=== PATIENT | female | born 1950 | race American Indian/Alaskan Native ===

== ENCOUNTER 2016-11-24 10:33 | Inpatient (IN) | payer MEDICARE, OTHER ==
[2016-11-24 11:23] LABS: Blood Urea Nitrogen 28 mg/dL (7-17)
[2016-11-24] MEDS ORDERED: NACL ONE (11:49)
--- NOTE | 2016-11-24 13:54 | Cat Scan Report ---
CT scan of chest with IV contrast: History: Persistent cough/right hilar mass. Findings: Filling defect in right upper lobe pulmonary artery origin suggestive of pulmonary embolism. Arteriosclerotic thoracic aorta without aneurysm. Dilated pulmonary arteries suggestive of pulmonary arterial hypertension. No mediastinal mass or adenopathy. Single pretracheal lymph node measures 1.2 cm. No pleural or pericardial effusion. Minimal scarring right and left apex and left lower lobe. No consolidation or mass. Impression: Pulmonary embolus right upper lobe branch. Pulmonary arterial hypertension. No acute changes. Dr. Susan Engle was informed of the findings at 1:48 PM on 11/24/16. RheaPmildred.
[2016-11-24] MEDS ORDERED: TYLENOL PO PRN (15:38)
[2016-11-24] MEDS ORDERED: MILK OF MAGNESIA PO PRN (15:38)
[2016-11-24] MEDS ORDERED: DULCOLAX PR PRN (15:38)
[2016-11-24] MEDS ORDERED: ZOFRAN IV PRN (15:38)
[2016-11-24] MEDS ORDERED: HEPARIN 10,000 UNITS/10 ML IV ONE (15:44)
[2016-11-24 17:09] LABS: Eosinophils % (Auto) 5.1 % (0.0-4.3); Hematocrit 38.5 % (30.3-42.9); Hemoglobin 12.5 gm/dl (10.1-14.3); Mean Corpuscular HGB Conc 33 % (30-34); Mean Corpuscular Hemoglobin 29 pg (28-32); Mean Corpuscular Volume 89 fl (79-97); Platelet Count 251 K/mm3 (140-440); Red Blood Count 4.34 M/mm3 (3.65-5.03); Red Cell Distribution Width 13.4 % (13.2-15.2); White Blood Count 5.9 K/mm3 (4.5-11.0)
[2016-11-24 17:18] LABS: BUN/Creatinine Ratio 22.5; Calcium 9.4 mg/dL (8.4-10.2); Chloride 100.7 mmol/L (98-107); INR 1.03 (0.87-1.13); Partial Thromboplastin Time 27.6 Sec. (24.2-36.6); Potassium 5.1 mmol/L (3.6-5.0)
--- NOTE | 2016-11-24 18:29 | History and Physical Report ---
History of Present Illness Date of admission: 11/24/16 15:38 History of present illness: This is apatient with a history of copd, chronic respiratory failure on o2 with hx of right DVT in the past who has had llle swelling. Seen by PCP and treated for gout. She had some improvement but began having shortness of breath. CTA done today showed evidence of acute pulmonary emboli. . She reports no worsening shortness of breath or chest pain. Past History Past Medical History: COPD, diabetes, DVT, hypertension Past Surgical History: hysterectomy (breast surgery), Other Social history: , lives with family, smoking (has discontinued x 2 yrs) Family history: CAD, diabetes, other (lung cancer) Medications and Allergies Allergies Allergy/AdvReac Type Severity Reaction Status Date / Time lisinopril Allergy COUGH Unverified 11/24/16 10:38 codeine AdvReac HALLUCINATI Unverified 11/24/16 10:38 ONS Fish Containing Products AdvReac Anaphylaxis Unverified 11/24/16 10:38 Penicillins AdvReac Rash Unverified 11/24/16 10:38 Active Meds: Active Medications Acetaminophen (Tylenol) 650 mg PO Q4H PRN PRN Reason: Pain MILD(1-3)/Fever >100.5/POPE Bisacodyl (Dulcolax) 10 mg [place] QDAY PRN PRN Reason: Constipation unrelieved by MOM Carvedilol (Coreg) 6.25 mg PO BID JOY Docusate Sodium (Colace) 100 mg PO BID JOY Famotidine (Pepcid) 10 mg PO BID JOY Heparin Sodium/Sodium Chloride (Heparin/ 0.45% Nacl-25,000 Unit/500 Ml) 25,000 unit in 500 mls @ 27 mls/hr IV TITR JOY; 1,350 UNITS/HR PRN Reason: Protocol Magnesium Hydroxide (Milk Of Magnesia) 30 ml PO Q4H PRN PRN Reason: Constipation Ondansetron HCl (Zofran) 4 mg IV Q8H PRN PRN Reason: N/V unrelieved by Reglan Review of Systems Constitutional: weight gain, weakness, chronic pain Respiratory: shortness of breath, home oxygen Musculoskeletal: morning stiffness, muscle cramps Hematologic/Lymphatic: easy bruising Allergic/Immunologic: allergic rhinitis Physical Examination Vital signs: Vital Signs Temp Pulse Resp BP Pulse Ox 98.6 F 93 H 20 106/45 97 11/24/16 17:00 11/24/16 17:00 11/24/16 17:00 11/24/16 17:00 11/24/16 17:00 General appearance: no acute distress, alert Eyes: non-icteric ENT: oropharynx moist Neck: supple Effort: normal Ascultation: Bilateral: clear Cardiovascular: regular rate and rhythm Gastrointestinal: normoactive bowel sounds, soft, non-tender, non-distended Integumentary: normal Extremities: no cyanosis, edema Musculoskeletal: no deformities Gait: normal gait normal mental status, non-focal exam, CN II-XII normal mood appropriate, affect normal Results - Laboratory Findings CBC and BMP: 11/24/16 16:34 11/24/16 16:34 PT/INR, D-dimer PT 13.4 Sec. (12.2-14.9) 11/24/16 16:34 INR 1.03 (0.87-1.13) 11/24/16 16:34 Abnormal lab findings: Abnormal Labs 11/24/16 11/24/16 11/24/16 10:56 16:34 16:34 Lymph % (Auto) 43.6 H Hardy % (Auto) 11.7 H Eos % (Auto) 5.1 H Seg Neutrophils % 38.6 L Potassium 5.1 H BUN 28 H 27 H Glucose 194 H - Diagnostic Findings CT scan - chest: report reviewed, image reviewed Assessment and Plan - Patient Problems (1) Chronic respiratory failure Current Visit: Yes Status: Chronic Qualifiers: Respiratory failure complication: hypoxia Qualified Code(s): J96.11 - Chronic respiratory failure with hypoxia (2) Hypoxia Current Visit: Yes Status: Chronic (3) Pulmonary embolism Current Visit: Yes Status: Acute Qualifiers: Pulmonary embolism type: P Chronicity: acute Acute cor pulmonale presence : without acute cor pulmonale (4) DVT (deep venous thrombosis) Current Visit: Yes Status: Chronic Qualifiers: DVT location: lower extremity Affected thrombotic vein of extremity: popliteal Chronicity: chronic Laterality: right Qualified Code(s): I82.531 - 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, managed as type 2 Current Visit: Yes Status: Chronic (6) Hypertension Current Visit: Yes Status: Chronic Qualifiers: Hypertension type: H (7) COPD (chronic obstructive pulmonary disease) Current Visit: Yes Status: Acute Qualifiers: COPD type: emphysema Chronic bronchitis type: C Emphysema type: centrilobular Qualified Code(s): J43.2 - Centrilobular emphysema (8) COPD (chronic obstructive pulmonary disease) with emphysema Current Visit: Yes Status: Acute Qualifiers: Emphysema type: E (9) Morbid obesity due to excess calories Current Visit: Yes Status: Chronic (10) Edema Current Visit: Yes Status: Acute Qualifiers: Edema type: E Malnutrition edema type: M Trimester: T
[2016-11-24] MEDS: COLACE PO SCH (22:19)
[2016-11-24] MEDS: NEURONTIN PO SCH (22:19)
[2016-11-24] MEDS: ZOCOR PO SCH (22:20)
[2016-11-24] MEDS: PEPCID PO SCH (22:20)
[2016-11-24] MEDS: HEPARIN/ 0.45% NACL-25,000 UNIT/500 ML 25,000 UNIT/500 ML BAG IV SCH (22:20)
[2016-11-24] MEDS: VOLTAREN DR PO SCH (22:20)
[2016-11-24] MEDS: COREG PO SCH (22:23)
[2016-11-25] MEDS: NEURONTIN PO SCH ×3 (05:51→21:36)
[2016-11-25] MEDS: HEPARIN/ 0.45% NACL-25,000 UNIT/500 ML 25,000 UNIT/500 ML BAG IV SCH ×2 (05:52→17:57)
[2016-11-25] MEDS: NOVOLOG SUB-Q SCH ×4 (09:00→21:38)
[2016-11-25] MEDS: PEPCID PO SCH ×2 (10:12→21:38)
[2016-11-25] MEDS: COLACE PO SCH ×2 (10:13→21:51)
[2016-11-25] MEDS: DELTASONE PO SCH (10:13)
[2016-11-25] MEDS: VOLTAREN DR PO SCH ×2 (10:14→21:36)
[2016-11-25] MEDS: COREG PO SCH ×2 (10:27→21:40)
--- NOTE | 2016-11-25 14:48 | Progress Note ---
Assessment and Plan Impression: Pulmonary embolism Rule out DVT Obstructive sleep apnea syndrome Hypertension Diabetes mellitus. Recommendation: Continue with heparin switch to Xarelto if covered on her insurance plan. NT need usual medications Monitor blood sugars. Subjective Date of service: 11/25/16 Interval history: Patient feeling fairly well. No shortness of breath. Has pulmonary embolism on CTA. Echo and venous Doppler studies are pending. Objective Vital Signs - 12hr 11/25/16 11/25/16 11/25/16 08:00 09:36 10:27 Temperature 97.5 F L Pulse Rate 68 76 Respiratory 20 Rate Blood Pressure 112/49 Blood Pressure 103/47 [Right] O2 Sat by Pulse 98 96 Oximetry Constitutional: no acute distress, alert Eyes: non-icteric ENT: oropharynx moist, other (crowded oropharynx) Neck: supple Effort: normal Ascultation: Bilateral: clear Cardiovascular: regular rate and rhythm Gastrointestinal: normoactive bowel sounds, soft, non-tender, non-distended, other (obese) Integumentary: normal Extremities: no cyanosis, edema Neurologic: normal mental status, non-focal exam, CN II-XII normal Psychiatric: mood appropriate, affect normal CBC and BMP: 11/24/16 16:34 11/24/16 16:34 ABG, PT/INR, D-dimer: PT/INR, D-dimer PT 13.4 Sec. (12.2-14.9) 11/24/16 16:34 INR 1.03 (0.87-1.13) 11/24/16 16:34 Abnormal lab findings: Abnormal Labs 11/24/16 11/24/16 11/24/16 10:56 16:34 16:34 Lymph % (Auto) 43.6 H Tucker % (Auto) 11.7 H Eos % (Auto) 5.1 H Seg Neutrophils % 38.6 L Heparin Anti-Xa Level Potassium 5.1 H BUN 28 H 27 H Glucose 194 H POC Glucose 11/24/16 11/25/16 11/25/16 21:37 08:06 10:28 Lymph % (Auto) Tucker % (Auto) Eos % (Auto) Seg Neutrophils % Heparin Anti-Xa Level 0.87 H Potassium BUN Glucose POC Glucose 196 H 165 H 11/25/16 11:43 Lymph % (Auto) Tucker % (Auto) Eos % (Auto) Seg Neutrophils % Heparin Anti-Xa Level Potassium BUN Glucose POC Glucose 182 H
[2016-11-25] MEDS: METFORMIN PO SCH (17:37)
[2016-11-25] MEDS: SAXAGLIPTIN PO SCH (17:37)
[2016-11-25] MEDS: ZOCOR PO SCH (21:37)
[2016-11-25] MEDS: ULTRAM PO PRN (21:37)
[2016-11-26 03:31] LABS: Hematocrit 36.8 % (30.3-42.9); Hemoglobin 12.3 gm/dl (10.1-14.3)
[2016-11-26] MEDS: HEPARIN/ 0.45% NACL-25,000 UNIT/500 ML 25,000 UNIT/500 ML BAG IV SCH (04:03)
[2016-11-26] MEDS: NEURONTIN PO SCH ×3 (05:56→22:11)
[2016-11-26] MEDS: NOVOLOG SUB-Q SCH ×4 (07:48→22:13)
[2016-11-26] MEDS: PEPCID PO SCH ×2 (09:22→22:11)
[2016-11-26] MEDS: DELTASONE PO SCH ×2 (09:23→16:00)
[2016-11-26] MEDS: VOLTAREN DR PO SCH (09:24)
[2016-11-26] MEDS: COREG PO SCH ×2 (09:29→22:11)
[2016-11-26] MEDS: COLACE PO SCH ×2 (09:30→22:13)
--- NOTE | 2016-11-26 14:08 | Progress Note ---
Assessment and Plan Impression: Pulmonary embolism Rule out DVT Obstructive sleep apnea syndrome Hypertension Diabetes mellitus. Recommendation: Continue with heparin switch to Xarelto if covered on her insurance plan. NT need usual medications Monitor blood sugars. Start diabetic diet as blood sugars are running high. Reduce prednisone Subjective Date of service: 11/26/16 Interval history: Patient feeling fairly well. No shortness of breath. Has pulmonary embolism on CTA. Echo and venous Doppler studies are pending. Objective Vital Signs - 12hr 11/26/16 11/26/16 11/26/16 07:16 09:13 09:29 Temperature Pulse Rate 90 Respiratory Rate Respiratory Rate [Right Shoulder] Blood Pressure 107/63 Blood Pressure [Right] O2 Sat by Pulse 95 99 Oximetry 11/26/16 11/26/16 10:00 14:03 Temperature 98.6 F 98.6 F Pulse Rate 78 79 Respiratory 20 20 Rate Respiratory 20 Rate [Right Shoulder] Blood Pressure Blood Pressure 109/52 105/41 [Right] O2 Sat by Pulse 100 98 Oximetry Constitutional: no acute distress, alert Eyes: non-icteric ENT: oropharynx moist, other (crowded oropharynx) Neck: supple Effort: normal Ascultation: Bilateral: clear Cardiovascular: regular rate and rhythm Gastrointestinal: normoactive bowel sounds, soft, non-tender, non-distended, other (obese) Integumentary: normal Extremities: no cyanosis, edema Neurologic: normal mental status, non-focal exam, CN II-XII normal Psychiatric: mood appropriate, affect normal CBC and BMP: 11/26/16 03:05 11/24/16 16:34 ABG, PT/INR, D-dimer: PT/INR, D-dimer PT 13.4 Sec. (12.2-14.9) 11/24/16 16:34 INR 1.03 (0.87-1.13) 11/24/16 16:34 Abnormal lab findings: Abnormal Labs 11/24/16 11/24/16 11/24/16 10:56 16:34 16:34 Lymph % (Auto) 43.6 H Throckmorton % (Auto) 11.7 H Eos % (Auto) 5.1 H Seg Neutrophils % 38.6 L Heparin Anti-Xa Level Potassium 5.1 H BUN 28 H 27 H Glucose 194 H POC Glucose 11/24/16 11/25/16 11/25/16 21:37 08:06 10:28 Lymph % (Auto) Throckmorton % (Auto) Eos % (Auto) Seg Neutrophils % Heparin Anti-Xa Level 0.87 H Potassium BUN Glucose POC Glucose 196 H 165 H 11/25/16 11/25/16 11/25/16 11:43 16:19 18:07 Lymph % (Auto) Throckmorton % (Auto) Eos % (Auto) Seg Neutrophils % Heparin Anti-Xa Level 1.04 H Potassium BUN Glucose POC Glucose 182 H 246 H 11/25/16 11/26/16 11/26/16 21:05 07:23 11:23 Lymph % (Auto) Throckmorton % (Auto) Eos % (Auto) Seg Neutrophils % Heparin Anti-Xa Level Potassium BUN Glucose POC Glucose 224 H 124 H 221 H
[2016-11-26] MEDS: XARELTO PO SCH (17:05)
[2016-11-26] MEDS: METFORMIN PO SCH (17:06)
[2016-11-26] MEDS: SAXAGLIPTIN PO SCH (17:06)
[2016-11-26] MEDS: ZOCOR PO SCH (22:11)
[2016-11-26] MEDS: ULTRAM PO PRN (22:12)
[2016-11-27] MEDS: NEURONTIN PO SCH ×2 (06:12→13:54)
--- NOTE | 2016-11-27 07:28 | Vascular Lab Report ---
LOWER EXTREMITY VENOUS DUPLEX: REASON FOR EXAM: History of bilateral deep venous thrombosis and pulmonary embolism./Leg pain. COMMENTS ON THE RIGHT: A small amount of nonocclusive thrombus is noted in the popliteal vein. The remaining veins visualized are freely compressible without evidence of internal echogenicity. Spontaneous and phasic flow is present proximally. COMMENTS ON THE LEFT: All veins visualized are freely compressible without evidence of internal echogenicity. Flow is spontaneous and phasic throughout. IMPRESSION: Chronic venous thrombosis in the right popliteal vein
[2016-11-27] MEDS: NOVOLOG SUB-Q SCH ×2 (08:00→12:00)
[2016-11-27] MEDS: XARELTO PO SCH (08:58)
[2016-11-27] MEDS: PEPCID PO SCH (09:18)
[2016-11-27] MEDS: DELTASONE PO SCH (09:19)
[2016-11-27] MEDS: COREG PO SCH (09:27)
[2016-11-27] MEDS: COLACE PO SCH (09:27)
[2016-11-27 09:29] VITALS: BP 110/59
--- NOTE | 2016-11-27 13:35 | Discharge Summary ---
Providers - Providers Date of Admission: 11/24/16 15:38 Date of discharge: 11/27/16 Attending physician: SHOAIB TIDWELL 11/24/16 Consult to Case Management [CONS] Routine Services Needed at Discharge: Other Notified:: DAVID Phone number called:: [phone] Primary care physician: DERRELL CORDOBA Hospitalization Reason for admission: Pulmonary Embolism Condition: Good Hospital course: Diagnosed with PE, started on Xarelto therapy and tolerated well. Discharged on Xarelto. Follow up with Oniel. Does see PM for heme as she has seen him in the past, but he does not come to the hospital anymore. Will need hypercoag work up done at some point. Disposition: DC-01 TO HOME OR SELFCARE Time spent for discharge: 33 minutes - Discharge Diagnoses (1) Pulmonary embolism Status: Acute Qualifiers: Pulmonary embolism type: P Chronicity: acute Acute cor pulmonale presence : without acute cor pulmonale Core Measure Documentation - Palliative Care Palliative Care/ Comfort Measures: Not Applicable - Core Measures Any of the following diagnoses?: DVT/PE - VTE Discharge Requirements Deep Vein Thrombosis/Pulmonary Embolism Present on Admission: Yes Has pt received <5 days of overlap therapy or INR<2.0: No (Discharging on Xarelto) Anticoagulant overlap therapy prescribed at discharge: No Contraindication No Overlap Therapy order at DC: Not Indicated Exam - Constitutional Vitals: Temp Pulse Resp BP Pulse Ox 98.6 F 84 20 110/59 96 11/27/16 06:36 11/27/16 10:00 11/27/16 06:36 11/27/16 09:27 11/27/16 10:00 General appearance: Present: no acute distress - EENT Eyes: Present: PERRL, EOM intact ENT: hearing intact, clear oral mucosa, dentition normal - Neck Neck: Present: supple, normal ROM - Respiratory Respiratory effort: normal Respiratory: bilateral: CTA - Cardiovascular Rhythm: regular Heart Sounds: Present: S1 & S2 - Extremities Extremities: no ischemia Peripheral Pulses: within normal limits - Abdominal General gastrointestinal: Present: soft, non-tender, normal bowel sounds - Rectal Rectal Exam: deferred - Musculoskeletal Musculoskeletal: strength equal bilaterally - Psychiatric Psychiatric: appropriate mood/affect - Neurologic Neurologic: CNII-XII intact Plan Activity: other (limit contact sports) Weight Bearing Status: Full Weight Bearing Diet: regular Follow up with: DERRELL CORDOBA MD [Primary Care Provider] - 7 Days Prescriptions: Rivaroxaban [Xarelto] 15 mg PO BIDDIAB 21 Days
== END 2016-11-27 15:06 | disposition home or self-care (01) | DRG 176 ==
LOC: CT 10:33 → CC2 15:38
PROVIDERS: ADMIT Specialist; ATTEND Specialist
DX: I26.99 Other pulmonary embolism without acute cor pulmonale (principal); J96.11 Chronic respiratory failure with hypoxia; I82.531 Chronic embolism and thrombosis of right popliteal vein; Z68.41 Body mass index [BMI] 40.0-44.9, adult; G47.33 Obstructive sleep apnea (adult) (pediatric); E11.9 Type 2 diabetes mellitus without complications; I10 Essential (primary) hypertension; E66.01 Morbid (severe) obesity due to excess calories; Z82.49 Family history of ischemic heart disease and other diseases of the circulatory system; Z83.3 Family history of diabetes mellitus; Z80.1 Family history of malignant neoplasm of trachea, bronchus and lung; Z87.891 Personal history of nicotine dependence; Z88.0 Allergy status to penicillin; Z88.5 Allergy status to narcotic agent; Z88.6 Allergy status to analgesic agent; Z91.013 Allergy to seafood; J44.9 Chronic obstructive pulmonary disease, unspecified
CPT/HCPCS: 36415; 71260; 80048; 82565; 82962; 84520; 85014; 85018; 85025; 85049; 85520; 85610; 85730; 93306; 93970; 94760; J1644; J7512; Q9967

== ENCOUNTER 2017-05-04 08:46 | Outpatient (CLI) | payer MEDICARE, OTHER ==
[2017-05-04 09:33] LABS: Blood Urea Nitrogen 16 mg/dL (7-17)
--- NOTE | 2017-05-04 11:01 | Cat Scan Report ---
CTA CHEST: HISTORY: Pulmonary embolism. COMPARISON: none. TECHNIQUE: Helical CT in 1.25mm intervals following IV contrast. Pulmonary embolus protocol. Sagittal and coronal reformatted images. Rotational MIP images. FINDINGS: Contrast bolus is satisfactory. No pulmonary embolus is identified. Thyroid gland: Normal. Tracheobronchial tree: Normal. Esophagus: Normal. Heart: Borderline to mild cardiomegaly. Pericardium: Normal. Mediastinum: There are moderate atherosclerotic calcifications in the thoracic aorta. No focal aneurysm or dissection. Lung Sotomayor: Normal. Pleural Spaces: Normal. Musculoskeletal: Mild thoracic spondylosis. IMPRESSION: No evidence for pulmonary embolus. Borderline heart size. Moderate atherosclerotic calcifications in the thoracic aorta.
== END 2017-05-04 08:47 | disposition home or self-care (01) ==
LOC: CT 08:46
PROVIDERS: ATTEND Specialist
DX: I26.99 Other pulmonary embolism without acute cor pulmonale (principal); I70.0 Atherosclerosis of aorta; M47.894 Other spondylosis, thoracic region
CPT/HCPCS: 36415; 71275; 82565; 84520; Q9967

== ENCOUNTER 2017-06-12 08:16 | Day surgery (SDC) | payer MEDICARE, OTHER ==
[~2017-06-12 08:16] MED LIST: WATER FOR IRRIG STERILE IR ONE; WATER FOR IRRIG STERILE ONE
[2017-06-12] MEDS ORDERED: DIPRIVAN 10 MG/ML IV ONE (09:43)
--- NOTE | 2017-06-12 09:56 | Anesthesia Day of Surgery ---
Anesthesia Day of Surgery - Day of Surgery Patient Examined: Yes Patient H&P Reviewed: Yes Patient is NPO: Yes Beta Blockers: No
--- NOTE | 2017-06-12 09:58 | Anesthesia Consultation ---
Anesthesia Consult and Med Hx - Airway Anesthetic Teeth Evaluation: Good ROM Head & Neck: Adequate Mental/Hyoid Distance: Adequate Mallampati Class: Class IV Intubation Access Assessment: Possibly Difficult - Pulmonary Exam CTA: Yes - Cardiac Exam Cardiac Exam: No Murmur - Pre-Operative Health Status ASA Pre-Surgery Classification: ASA3 Proposed Anesthetic Plan: MAC - Pulmonary Hx Smoking: No Hx Asthma: No Hx Respiratory Symptoms: No COPD: Yes (HOME 02 USE) Home Oxygen Therapy: No Hx Pneumonia: No Hx Sleep Apnea: No - Cardiovascular System Hx Hypertension: Yes Hx Coronary Artery Disease: No Hx Heart Attack/AMI: No Hx Angina: No Hx Percutaneous Transluminal Coronary Angioplasty (PTCA): No Hx Cardia Arrhythmia: No Hx Pacemaker: No Hx Internal Defibrillator: No Hx Valvular Heart Disease: No Hx Heart Murmur: No Hx Peripheral Vascular Disease: No - Central Nervous System Hx Neuromuscular Disorder: No Hx Seizures: No CVA: No Hx Back Pain: No Hx Psychiatric Problems: No - Gastrointestinal Hx Ulcer: No Hx Gastroesophageal Reflux Disease: No - Endocrine Hx Renal Disease: No Hx End Stage Renal Disease: No Hx Cirrhosis: No Hx Liver Disease: No Hx Insulin Dependent Diabetes: Yes Hx Non-Insulin Dependent Diabetes: No Hx Thyroid Disease: No - Hematic Hx Anemia: No Hx Sickle Cell Disease: No - Other Systems Hx Alcohol Use: No Hx Substance Use: No Hx Cancer: No Hx Obesity: Yes
[2017-06-12] MEDS ORDERED: VERSED ONE (09:59)
[2017-06-12] MEDS ORDERED: ZOFRAN ONE (10:00)
[2017-06-12] MEDS ORDERED: XYLOCAINE MPF 2% ONE (10:00)
[2017-06-12] MEDS ORDERED: NEO SYNEPHRINE/NS Syringe(OR USE) IV ONE (10:00)
[2017-06-12] MEDS ORDERED: NACL 0.9% 1000 ML 1,000 ML IV SCH (10:00)
--- NOTE | 2017-06-12 10:36 | Short Stay Summary ---
Short Stay Documentation Date of service: 06/12/17 Narrative H&P: The patient presents for screening colonoscopy. Last study about 10 years ago. - History Past Medical History: COPD, diabetes, hypertension, hyperlipidemia, other ( obesity, glaucoma) Past Surgical History: hysterectomy, Other (breast surgery) Social history: smoking (former smoker, quit 5 years ago. ), no alcohol abuse, no prescription drug abuse - Allergies and Medications Current Medications: Allergies Fjqdbvo-Rcg-Yho Reductase Inhibitor Allergy (Mild, Verified 06/12/17 07:30) Unknown lisinopril Allergy (Verified 06/12/17 07:30) COUGH codeine Adverse Reaction (Verified 06/12/17 07:30) HALLUCINATIONS Fish Containing Products Adverse Reaction (Verified 06/12/17 07:30) Anaphylaxis Penicillins Adverse Reaction (Verified 06/12/17 07:30) Rash Sulfa (Sulfonamide Antibiotics) Adverse Reaction (Verified 06/12/17 07:30) Hives Home Medications Medication Instructions Recorded Confirmed Last Taken Type Radha-D 12 Hour Tablet 1 tab PO PRN PRN 11/25/16 06/12/17 06/11/17 History Pravastatin 1 tab PO QDAY 11/25/16 06/12/17 06/11/17 09:00 History RX: Carvedilol Phosphate [Coreg CR] 1 tab PO QDAY 11/25/16 11/25/16 06/11/17 09: 00 History RX: Diclofenac Sodium 75 mg PO BID 11/25/16 11/25/16 06/11/17 17:00 History RX: Gabapentin 3 cap PO BID 11/25/16 11/25/16 06/11/17 17:00 History RX: Mirabegron [Myrbetriq] 1 tab PO QDAY 11/25/16 06/12/17 06/11/17 09:00 History RX: Prednisone 1 tab PO QDAY 11/25/16 06/12/17 06/11/17 09:00 History RX: Tizanidine HCl [tiZANidine] 1 tab PO Q8HR 11/25/16 06/11/17 Unknown History RX: Tramadol HCl [traMADol] 1 tab PO Q8H PRN 11/25/16 06/11/17 Unknown History Kombiglize Xr 2.5/1000mg Tab 1 tab PO QPM 11/27/16 06/12/1706/11/18 17:00 Rx RX: Gabapentin [Neurontin] 100 mg PO Q8HR capsule 11/27/16 Unknown Rx RX: Rivaroxaban [Xarelto] 15 mg PO BIDDIAB 21 Days tablet 11/27/16 06/08/17 09 :00 Rx RX: Simvastatin [Zocor TAB] 10 mg PO QHS tablet 11/27/16 06/12/17 06/11/17 21: 00 Rx RX: predniSONE [Deltasone] 5 mg PO QDAY tablet 11/27/16 06/12/17 06/11/17 09: 00 Rx Amlodipine Besylate/Valsartan 10 - 32 tab PO DAILY 06/11/17 06/12/17 06/11/17 09 :00 History [Amlodipine-Valsartan 10-320 mg] Colchicine 1 tab PO DAILY 06/11/17 06/12/17 06/11/17 09:00 History RX: ALBUTEROL Inhaler [ProAir HFA 2 puff PO Q6HR PRN 06/11/17 06/11/17 Unknown History Inhaler] RX: Carvedilol [Coreg] 2 mg PO BID 06/11/17 06/12/17 06/09/17 19:00 History RX: Oseltamivir [Tamiflu] 06/11/17 Unknown History Active Medications Sodium Chloride (Nacl 0.9% 1000 Ml) 1,000 mls @ 50 mls/hr IV DIRECT JOY - Physical exam General appearance: no acute distress, well-nourished, obese Integumentary: no rash, no growths, no abnormal pigmentation HEENT: Atraumatic, PERRLA, EOMI, Mucous membr. moist/pink Lungs: Clear to auscultation Breasts: deferred Heart: Regular rate, Normal S1, Normal S2, No murmurs, no Gallops Gastrointestinal: normoactive bowel sounds, no tenderness, no distended, no masses, no guarding, no organomegaly Female Genitourinary: deferred Rectal Exam: normal exam-external/orifice, normal rectal tone, no mass Extremities: no ischemia, pulses intact, pulses symmetrical, No edema, normal temperature, normal color, Full ROM Neurological: Normal gait, Normal speech, Strength at 5/5 X4 ext, Normal tone, Sensation intact, Cranial nerves 3-12 NL - Brief post op/procedure progress note Date of procedure: 06/12/17 Procedure: see dictated report. Estimated blood loss: none Pathology: list (diminutive descending colon polyp) Specimen disposition: to lab Condition: stable - Disposition Condition at discharge: Good Disposition: DC-01 TO HOME OR SELFCARE - Discharge Diagnoses (1) Colon cancer screening Status: Acute Short Stay Discharge Plan Activity: other (no driving for 24 hours, restart rivarixaban tomorrow) Weight Bearing Status: Full Weight Bearing Diet: diabetic Follow up with: DERRELL CORDOBA MD [Primary Care Provider] - 7 Days
--- NOTE | 2017-06-12 10:40 | Operative Report ---
Operative Report Operative Report: Date of procedure: 06/12/2017 Preprocedure diagnosis: Colon cancer screening. Post procedure diagnosis: Diminutive descending colon polyp. Mild left colon diverticulosis. Procedure: Colonoscopy to the cecum with cold biopsy polypectomy Endoscopist: Dr. Grimes Anesthesia: Monitored anesthesia care per anesthesia department Estimated blood loss: 0 Medications: Monitored anesthesia care. See separate report by anesthesia for details. After careful discussion of the nature and purpose of the procedure as well as details of the technique risks benefits and alternatives the patient gave consent. Please see recent history and physical from the office. The patient was placed in the left lateral decubitus position and medicated per anesthesia. A rectal exam was performed sphincter tone was normal there were no masses palpable. The Nonpareiln 570 scope was passed transanally and advanced under continuous direct vision without difficulty to the cecum. The colon was well prepared. The cecum was normal. The ascending colon was normal and on forward and retroflexed views. The transverse colon was normal. The descending colon revealed a few diverticula and a sessile diminutive polyp. The polyp was removed completely with the cold biopsy forceps. The sigmoid colon revealed scattered diverticula but was otherwise normal. The rectum was normal on forward and retroflexed views. The procedure was well-tolerated overall and the patient was observed in recovery. Conclusions: Diminutive descending colon polyp, mild descending and sigmoid colon diverticulosis. Plan: Await pathology report. Follow-up colonoscopy in 5-10 years depending upon the pathology. Signed electronically: Dick Grimes M.D.
--- NOTE | 2017-06-12 11:35 | Post Anesthesia Evaluation ---
- Post Anesthesia Evaluation Patient Participated: Yes Airway Patent: Yes Stable Respiratory Function: Yes Nausea/Vomiting: No Temp > 96.8F: Yes Pain Manageable: Yes Adequeate Hydration: Yes Anesthesia Complications: No
[2017-06-12 11:36] VITALS: BP 113/52
== END 2017-06-12 08:17 | disposition home or self-care (01) ==
LOC: GIO 08:16
PROVIDERS: ATTEND Internal Medicine Gastroenterology
DX: Z12.11 Encounter for screening for malignant neoplasm of colon (principal); K57.30 Diverticulosis of large intestine without perforation or abscess without bleeding; J44.9 Chronic obstructive pulmonary disease, unspecified; I10 Essential (primary) hypertension; E78.5 Hyperlipidemia, unspecified; E66.9 Obesity, unspecified; E11.39 Type 2 diabetes mellitus with other diabetic ophthalmic complication; H40.9 Unspecified glaucoma; Z88.5 Allergy status to narcotic agent; Z88.0 Allergy status to penicillin; Z88.8 Allergy status to other drugs, medicaments and biological substances; Z88.2 Allergy status to sulfonamides; Z90.710 Acquired absence of both cervix and uterus; Z91.013 Allergy to seafood; Z99.81 Dependence on supplemental oxygen
CPT/HCPCS: 45380; 82962; 88305; J2250; J2370; J2405; J2704; J7030

== ENCOUNTER 2020-10-15 13:22 | Outpatient (CLI) | payer MEDICARE, OTHER ==
--- NOTE | 2020-10-15 16:38 | Vascular Lab Report ---
DUPLEX DOPPLER LOWER EXTREMITY VEINS, BILATERAL INDICATION / CLINICAL INFORMATION: CHECKING FOR BLOOD CLOT. TECHNIQUE: Duplex doppler imaging was performed through the veins of both lower extremities using lv ous compression and other maneuvers. COMPARISON: Bilateral lower extremity venous Doppler 11/25/2016. FINDINGS: RIGHT COMMON FEMORAL VEIN: Negative. RIGHT FEMORAL VEIN: Negative. RIGHT POPLITEAL VEIN: Chronic nonocclusive thrombus. RIGHT CALF VEINS: Negative. LEFT COMMON FEMORAL VEIN: Negative. LEFT FEMORAL VEIN: Negative. LEFT POPLITEAL VEIN: Negative. LEFT CALF VEINS: Negative. ADDITIONAL FINDINGS: None. IMPRESSION: 1. No sonographic evidence for acute DVT in either lower extremity. Chronic nonocclusive thrombus is present within the right popliteal vein, similar to prior exam. Scribed by: Tracy Segal RDMS, RVT Scribed: 10/15/2020 2:44 PM I have reviewed the images, agree with this report, and edited this report as needed. Signer Name: Tex Davison MD Signed: 10/15/2020 4:34 PM Workstation Name: [id number]
== END 2020-10-15 13:23 | disposition home or self-care (01) ==
LOC: VAS 13:22
PROVIDERS: ATTEND Internal Medicine
DX: I82.531 Chronic embolism and thrombosis of right popliteal vein (principal)
CPT/HCPCS: 93970